=== PATIENT | female | born 1950 | race Caucasian/White ===

== ENCOUNTER 2016-09-05 20:10 | Emergency (ER) | payer MEDICARE, BC ==
[2016-09-05 20:20] VITALS: BP 132/68
--- NOTE | 2016-09-05 20:40 | ERNOTE ---
Medical Problem HPI - Narrative Date of Service: 09/05/16 - General Chief Complaint: General Assessment Time Seen by Provider: 09/05/16 20:28 Source: patient Exam Limitations: no limitations - Immun/Allergies/Home Medications Immunizations: IMMUNIZATION HX Immunizations Up to Date Yes History of Influenza Vaccine Yes Hx Pneumococcal Vaccination Yes Allergies/Adverse Reactions: Allergies No Known Allergies Allergy (Verified 12/21/14 12:38) Home Medications: HOME MEDICATIONS Albuterol Sulfate [Albuterol Sulfate 2.5 MG/0.5ML] 2.5 mg IH Q3H PRN 06/02/13 [ Last Taken Unknown] Hydrochlorothiazide 25 mg PO DAILY 06/02/13 [Last Taken Unknown] Levothyroxine Sodium [Synthroid] 200 mcg PO DAILY 06/02/13 [Last Taken Unknown] Lisinopril [Zestril] 10 mg PO DAILY 06/02/13 [Last Taken Unknown] Omeprazole [Prilosec] 40 mg PO DAILY 06/02/13 [Last Taken Unknown] Rosuvastatin Calcium [Crestor] 20 mg PO HS 06/02/13 [Last Taken Unknown] glipiZIDE [Glucotrol] 5 mg PO BID 06/02/13 [Last Taken Unknown] metFORMIN HCL [Glucophage] 1,000 mg PO BIDWM 06/02/13 [Last Taken Unknown] Saxagliptin HCl [Onglyza] 5 mg PO DAILY 12/21/14 [Last Taken Unknown] Linaclotide [Linzess] 145 mcg PO DAILY 09/05/16 [Last Taken Unknown] Urea 142 gm TP BID 09/05/16 [Last Taken Unknown] - History of Present History Narrative: patient present with right breast pain that started last weekend. patient states it comes and goes, can last for a few min, describes pain as stabbing and then it goes away. Date (Duration): 09/05/16 Timing: intermittent Severity: mild Modifying Factors - (Improves): Present: other - warmth Review of Systems - Review of Systems Constitutional: Present: no symptoms reported EYE: Present: no symptoms reported ENT: Present: no symptoms reported Respiratory: Present: no symptoms reported Cardiology: Present: no symptoms reported Gastrointestinal/Abdominal: Present: no symptoms reported Genitourinary: Present: no symptoms reported Musculoskeletal: Present: See HPI, muscle pain Skin: Present: no symptoms reported Neurological: Present: no symptoms reported Endocrine: Present: no symptoms reported Hematologic/Lymphatic: Present: no symptoms reported Psych: Present: no symptoms reported All Other Systems: All systems neg except as marked - Patient's Past Medical History Patient History - Medical: Diabetes Type 2 Patient History - Cardiac/Respiratory: Coronary Heart Disease, COPD, Myocardial Infarction Patient History - Cancer: No Hx of Cancer Patient History - Surgical Procedures: No surgical history Patient History - Other: None LMP (females 10-50): Menopausal - Social History Living Situations: home Abuse History: No History of abuse Psych History: Hx of Anxiety, Hx of Depression, Current tx/ever been on anti- depressants or anti-anxiety meds Smoking Status: Current every day smoker Alcohol Use: none Drug Use: none - Immunizations Immunizations Up to Date: Yes Hx Pneumococcal Vaccination: Yes History of Influenza Vaccine: Yes Physical Exam - Physical Exam Narrative: patient has right upper breast pain, tender to touch, no swelling or redness. no mass. Bilateral breast are pendulous and supple. skin is warm dry and intact. denies nipple involvement and discharge. patient was able to make pain return with raising her right arm like she was reaching for something. General Appearance: Present: wd/wn, alert, no apparent distress Eye Exam: Normal inspection: bilateral Ears, Nose, Throat: Present: normal ENT inspection, normal pharynx Neck: Present: normal inspection, nontender, full range of motion Respiratory: Present: no respiratory distress, normal breath sounds, no accessory muscle use, lungs clear, chest tenderness - right breast Cardiovascular/Chest: Present: regular rate, rhythm, no murmur Gastrointestinal/Abdominal: Present: nontender, soft Back Exam: Present: normal inspection, normal range of motion, no CVA tenderness , no vertebral tenderness Extremity Exam: Present: normal inspection, normal range of motion, no edema Neurological Exam: Present: alert, oriented, normal mood/affect, no motor/ sensory deficits Skin Exam: Present: normal color, warm/dry Lymphatic Exam: Present: no adenopathy. Absent: axilla node (R), axilla node (L ) ED Progress - Vital Signs Patient's Vital Signs:: I have reviewed the patient's vital signs. Vital Signs: Vital Signs 09/05/16 20:12 Temperature 36.9 C Pulse Rate 73 Respiratory 16 Rate Blood Pressure 132/68 O2 Sat by Pulse 91 Oximetry - Progress/Reassessment Chief Complaint: General Assessment Progress:: Improved Progress Note-Subjective: 09/05/16 20:35 improved with heat. Plan - Plan Plan: Speaking with patient she denies having any previous mammograms performed. I did encourage her to keep her appointment with Dr. Dominique so she could have a mammogram performed in follow-up on. Patient states that she will keep her appointment on Saturday with Dr. Dominique. Departure - Departure Clinical Impression: Breast pain, right Disposition: Home Follow Up Needed Condition: Stable Instructions: Breast Tenderness, Chest Wall Pain Additional Instructions: Please keep your follow-up appointment with Dr. Dominique on Saturday. Return to the emergency room if symptoms persists. You may apply heat or ice to the effected area ever makes it feel better at this time. Continue any previous home medications as directed. Referrals: Charlene Dominique MD [Primary Care Provider] -
--- OUTSIDE RECORDS SUMMARY | 2016-09-05 20:46 | XMS REPORT | Continuity of Care Document ---
:1950 Author Organization [facility] ([facility]) [place] [address] Phone [phone] Care Team Providers Name Role Phone Charlene Dominique Primary Care Provider [phone] Source Comments This disclosure is being made pursuant to the Care Everywhere program, applicable federal and state laws, and may not contain all informaitonavailable regarding this patient.[facility] ([facility]) Active Allergies and Adverse Reactions No Known Allergies Current Medications Prescription Sig. Disp. Refills Start Date End Date Status hydrochlorothiazide 25 mg Take 25 mg by Active tablet mouth daily. Omeprazole 20 mg TbEC Take by mouth 2 Active times daily. lisinopril 10 mg tablet Take 10 mg by Active mouth daily. metFORMIN 1,000 mg tablet Take 1,000 mg by Active mouth 2 times daily with meals. rosuvastatin (CRESTOR) 20 Take 20 mg by Active mg tablet mouth every evening. linaclotide (LINZESS) 145 Take 145 mcg by Active mcg capsule mouth every morning before breakfast levofloxacin 500 mg tablet Take 500 mg by Active mouth daily. glipiZIDE 10 mg tablet Take 10 mg by Active mouth 2 times daily with meals. levothyroxine PO Take 225 mcg by Active mouth daily. ezetimibe (ZETIA) 10 mg Take 10 mg by Active tablet mouth daily. buPROPion (WELLBUTRIN-SR) Take 150 mg by Active 150 mg SR tablet 12 hour mouth 2 times daily. urea 40 % cream Apply topically Active 2 times daily. polyethylene Take as 4000 mL 0 01/02/2016 Active glycol-electrolyte directed. (GOLYTELY) suspension famotidine 20 mg tablet Take 20 mg by Active mouth 2 times daily. Active Problems Problem Noted Date GERD (gastroesophageal reflux disease) 08/24/2008 Hyperlipidemia 08/24/2008 Hypothyroidism 08/24/2008 Urge incontinence 07/26/2008 Most Recent Encounters Date Type Specialty Providers Description 09/05/2016 Hospital Encounter Radiology VitoteresaAntwan Chief Comp: Patient MD Kiara Reported Reason For Visit 09/05/2016 Office Visit Med GI/Hepatology Eladio Rich, Dx: Non- alcoholic MD cirrhosis (Primary Dx) Social History Tobacco Use Types Packs/Day Years Used Date Current Every Day Smoker Cigarettes 1 45 Smokeless Tobacco: Never Used Tobacco Cessation:Counseling Given: Yes Comments: Alcohol Use Drinks/Week oz/Week Comments No Last Filed Vital Signs Vital Sign Reading Time Taken Blood Pressure 127/56 09/05/2016 9:35 AM CDT Pulse 69 09/05/2016 9:35 AM CDT Temperature 36.5 C (97.7 F) 09/05/2016 9:35 AM CDT Respiratory Rate 18 10/22/2012 9:07 AM CDT Height 1.54 m (5' 0.63") 09/05/2016 9:35 AM CDT Weight 74.05 kg (163 lb 4 oz) 09/05/2016 9:35 AM CDT Body Mass Index 31.22 09/05/2016 9:35 AM CDT Oxygen Saturation 94% 10/22/2012 9:07 AM CDT Plan of Care Date Type Specialty Providers Description 02/25/2017 Appointment Radiology Chief Comp: Patient Reported Reason For Visit 02/25/2017 Appointment Med GI/Hepatology Eladio Rich MD Chief Comp: Patient [address] [place] [address] Visit [phone] (Fax) 09/04/2017 Appointment Radiology Chief Comp: Patient Reported Reason For Visit 09/04/2017 Appointment Med GI/Hepatology Eladio Rich MD Chief Comp: Patient [address] [place] [address] Visit [phone] (Fax) Health Maintenance Due Date Last Done Comments Hepatitis B Vaccine (1 of 3 - Primary Series) 1950 Tdap Vaccine 02/03/1960 Td Vaccine 1967 Mammogram 1989 Colonoscopy 1999 Zoster Vaccine 2009 Osteoporosis Screening (DXA Bone Density) 2014 Pneumococcal Vaccine (1 of 2 - PCV13) 2014 Influenza Vaccine: Seasonal (Season Ended) 2016 Lipid Disorder Screening 09/06/2020 09/07/2015 HCV Screening Completed 09/07/2015 Results from Last 3 Months US ABDOMEN LIMITED (09/05/2016 9:19 AM) Impressions Impression: 1. Cirrhotic liver without focal liver lesions. 2. Mild splenomegaly, no ascites. --- Final --- Narrative [facility] Department of Radiology Ultrasound Division [address] [place] [address] ULTRASOUND REPORT NAME:AMEE SCOTT Date of Service: 09/05/2016 MRN NO.: [id number] Review Date: 09/05/2016 Patient's : 1950 Resident/Tech: [id number] Cheo Camargo Patient's Age: 66 years Referring MD:ELADIO RICH Indication: Please assess for mass/lesion and ascites before RTCHepatic cirrhosis, unspecified hepatic cirrhosis type [K74.60] Fatty liver [K76.0] Diabetes mellitus due to underlying condition with hyperglycemia [E08.65]. Technique: Liver, spleen, ascites surveillance grayscale ultrasound. Comparison: None. Findings: Liver: +---------+ + +--------+ + :Size (cm):Echogenicity:Echotexture:Shape :Vascularity: +---------+ + +--------+ + :18.2 :Increased.:Coarse echotexture.:Nodular.:Normal.: +---------+ + +--------+ + Spleen: Splenomegaly. Spleen measures 14.6 x 14.9 x 5.9 cm. Ascites: No ascites. Procedure Note Duy, Incoming Imaging Results - SatSeptember 05, 2016 11:18 AM CDT [facility] Department of Radiology Ultrasound Division [address] [place] [address] ULTRASOUND REPORT NAME: AMEE SCOTT Date of Service: 09/05/2016 MRN NO.: [id number] Review Date: 09/05/2016 Patient's : 1950 Resident/Tech: [id number] Cheoerica Maryson Patient's Age: 66 years Referring MD: ELADIO RICH Indication: Please assess for mass/lesion and ascites before RTCHepatic cirrhosis, unspecified hepatic cirrhosis type [K74.60] Fatty liver [K76.0] Diabetes mellitus due to underlying condition with hyperglycemia[E08.65]. Technique: Liver, spleen, ascites surveillance grayscale ultrasound. Comparison: None. Findings: Liver: +---------+ + +--------+ + :Size (cm):Echogenicity:Echotexture :Shape :Vascularity: +---------+ + +--------+ + :18.2 :Increased. :Coarse echotexture.:Nodular.:Normal. : +---------+ + +--------+ + Spleen: Splenomegaly. Spleen measures 14.6 x 14.9 x 5.9 cm. Ascites: No ascites. IMPRESSION Impression: 1. Cirrhotic liver without focal liver lesions. 2. Mild splenomegaly, no ascites. --- Final --- ALPHA-FETOPROTEIN (09/05/2016 7:36 AM) Component Value Range AFP 1.4 0.0-9.0 ng/mL Specimen Blood LIPID PANEL (09/05/2016 7:36 AM) Component Value Range Specimen Type Not specified Cholesterol 91Comment: mg/dL Reference Range: Less than 200 mg/dL - desirable 200 - 240 mg/dL - increased risk Above 240 mg/dL - significant risk Triglycerides 57Comment: 0-150 mg/dL Reference Ranges: Normal:<150 mg/dL Borderline-high:150-199 mg/dL High: 200-499 mg/dL Very high: > me=274 mg/dL HDL Cholesterol 51 >=41 mg/dL LDL - Calculated 29 <=130 mg/dL Non-HDL Cholesterol (Calc) 40 mg/dL Specimen Blood FERRITIN (09/05/2016 7:36 AM) Component Value Range Ferritin 161.1(H) 13.0-150.0 ng/mL Specimen Blood IRON PANEL (IRON, TRANSFERRIN, TIBC AND % SATURATION) (09/05/2016 7:36 AM) Component Value Range Iron, Blood 80 37-145 g/dL Transferrin 227 200-360 mg/dL Iron % Saturation 25Comment: 15-50 % Iron % saturation is a calculated parameter derived from the iron and transferrin plasma concentrations. Iron % saturation is not reliable when there are high ferritin concentrations greater than 1,200 ng/mL. TIBC (Total Iron Binding Capacity) 325Comment: 250-425 g/dL TIBC is a calculated parameter derived from the transferrin plasma concentration. Specimen Blood BASIC METABOLIC PANEL W/ CALCIUM (CHEM 8) (09/05/2016 7:36 AM) Component Value Range Sodium 142 135-145 mEq/L Potassium 4.7 3.5-5.0 mEq/L Chloride 106 95-107 mEq/L CO2 26 22-29 mEq/L BUN 23(H) 10-20 mg/dL Creatinine 0.8Comment: 0.5-1.0 mg/dL Creatinine switched to enzymatic method on 08/29/2010.GFR equation switched to IDMS-traceable MDRD equation on 08/29/2010. Calculated GFR values are not valid in clinical settings where serum creatinine is changing. Glucose 124(H)Comment: 65-99 mg/dL The Expert Committee on the Diagnosis and Classification of Diabetes has defined impaired fasting glucose as greater than or equal to 100 mg/dL but less than 126 mg/dL.(Diabetes Care 28 (Suppl 1)S41,2005) Calcium 9.1 8.5-10.5 mg/dL Anion Gap 10 <17 mEq/L Calculated GFR 72 >60 mL/min/1.73 m2 Specimen Blood LACTATE DEHYDROGENASE (LDH) (09/05/2016 7:36 AM) Component Value Range LDH 178 135-214 U/L Specimen Blood GAMMA GLUTAMYLTRANSPEPTIDASE (09/05/2016 7:36 AM) Component Value Range GGT 25 5-36 U/L Specimen Blood HEPATIC FUNCTION PANEL (09/05/2016 7:36 AM) Component Value Range Albumin 4.1 3.4-4.8 g/dL ALP 105(H) 35-104 U/L Bilirubin Total 0.9 <=1.2 mg/dL Bilirubin, Direct 0.2 0.0-0.2 mg/dL AST 27Comment: 0-32 U/L Adult reference ranges updated on 03/17/13 at 830am ALT 26Comment: 0-33 U/L The upper limit of normal for alanine aminotransferase (ALT) reference ranges for adults is controversial with some authorities recommending limit as low as 30 U/L for males and 19 U/L for females. Th ere is increased incidence of subclinical liver disease (e.g., early steatohepatitis) in patients with ALT values in the range of 31-41 U/L for males and 20-33 U/L for females. ALT values should alway s be interpreted in conjunction with clinical history, physical examination findings, and, if applicable, data from other diagnostic tests. Total Protein 7.1 6.0-8.0 g/dL Specimen Blood CBC (COMPLETE BLOOD COUNT) (09/05/2016 7:36 AM) Component Value Range WBC Count 4.4 3.7-10.5 K/MM3 RBC Count 3.78(L) 4.00-5.20 M/MM3 Hemoglobin 11.8(L) 11.9-15.5 g/dL Hematocrit 35 35-47 % MCV (Mean Corpuscular Volume) 93 82-99 FL MCH (Mean Corpuscular Hemoglobin) 31 25-35 PG MCHC (Mean Corpuscular Hemoglobin Concentration) 34 32-36 % Platelet Count 103(L) 150-400 K/MM3 MPV (Mean Platelet Volume) 9.2(L) 9.4-12.3 FL RBC Dist Width-STD 45.2 36.4-46.3 FL RBC Distrib Width 13.3 9.0-14.5 % Nucleated RBC 0 /100 WBC Specimen Whole Blood PT/INR (PROTHROMBIN TIME/INR) VENOUS (09/05/2016 7:36 AM) Component Value Range PT (Prothrombin Time) 10 9-12 secs INR 1.0 <4.0 Specimen Blood
--- OUTSIDE RECORDS SUMMARY | 2016-09-05 20:46 | XMS REPORT | Continuity of Care Document ---
:1950 Author Organization [facility] [place] [address] Care Team Providers Name Role Phone TripCharlene Blessing Primary Care Provider [phone] Source Comments This disclosure is being made pursuant to the [employer] other things you bake program and contain all information available regarding this patient.[facility] Active Allergies and Adverse Reactions No Known Allergies Current Medications Be aware that medications may not be up to date as of this document. Alwaysverify current medications with the patient. Prescription Sig. Disp. Refills Start Date End Date Status acetaminophen Take 2 tablets by 100 tablet 1 12/23/2015 Active (TYLENOL) 325 MG mouth every 6 tablet (six) hours as needed. budesonide Take 2 mLs by 60 mL 1 12/23/2015 Active (PULMICORT) 0.5 nebulization 2 MG/2ML nebulizer (two) times daily. solution Rinse mouth after use. dextrose 50 % Inject 50 mLs into 50 mL 0 12/23/2015 Active solution the vein as needed (hypoglycemia symptoms and/or glucose less than 70 mg/dL). dextrose 15 GM/59ML Take 59-118 mLs by 59 mL 0 12/23/2015 Active LIQD oral liquid mouth as needed (hypoglycemia symptoms and/or glucose less than 70 mg/dL). dextrose 15 GM/59ML Take 59-118 mLs by 59 mL 0 12/23/2015 Active LIQD oral liquid mouth as needed (hypoglycemia symptoms and/or glucose less than 70 mg/dL). glucagon, human Inject 1 mg into 1 each 0 12/23/2015 12/17/2016 Active recombinant, 1 MG the muscle as injection needed (hypoglycemia symptoms and/or glucose less than 70 mg/dL). ipratropium-albutero Take 3 mLs by 90 mL 3 12/23/2015 Active l (DUONEB) 0.5-2.5 nebulization every (3) MG/3ML SOLN 4 (four) hours. levothyroxine 1 tablet by Per G 90 tablet 1 12/24/2015 Active (SYNTHROID, Tube route every LEVOTHROID) 200 MCG morning. tablet menthol-zinc oxide Apply to right and 1 Tube 0 12/23/2015 Active 0.44-20.625 % OINT left buttocks wounds and cover with dressing twice daily metoclopramide Inject 2 mLs into 1 mL 0 12/23/2015 Active (REGLAN) 5 MG/ML the vein every 6 injection (six) hours. HYDROcodone-acetamin 1-2 tablets by Per 30 tablet 0 12/23/2015 Active ophen (NORCO) 5-325 G Tube route every MG per tablet 4 (four) hours as needed. Active Problems Problem Noted Date S/P CABG (coronary artery bypass graft) 12/12/2015 Chronic obstructive pulmonary disease (HCC) 10/12/2015 Hyperlipidemia 10/12/2015 Type 2 diabetes mellitus with circulatory disorder (HCC) 10/12/2015 Coronary artery disease involving [place] coronary artery of [place] heart 10/11 with angina pectoris ([facility]) Social History Tobacco Use Types Packs/Day Years Used Date Former Smoker 30 Quit: 10/06/2015 Alcohol Use Drinks/Week oz/Week Comments No Last Filed Vital Signs Vital Sign Reading Time Taken Blood Pressure 85/39 12/25/2015 11:00 AM CDT Pulse 80 12/25/2015 11:55 AM CDT Temperature 37 C (98.6 F) 12/25/2015 8:00 AM CDT Respiratory Rate 20 12/25/2015 11:55 AM CDT Height 1.638 m (5' 4.5") 12/12/2015 5:19 AM CDT Weight 84.1 kg (185 lb 6.5 oz) 12/25/2015 4:00 AM CDT Body Mass Index 31.34 12/25/2015 4:00 AM CDT Oxygen Saturation 94% 12/25/2015 11:00 AM CDT Plan of Care Health Maintenance Due Date Last Done Comments Eye (Ophthalmology) Exam 1960 Foot Exam 1960 Lab-Urine Microalbumin 1959 Hepatitis C Screening 1967 Tetanus/Pertussis (1 - Tdap) 02/03/1968 Colonoscopy 1999 Mammogram 1999 Well Adult Visit 1999 Zoster Vaccine 60+ 2009 Bone Density 2014 Pneumococcal Low/Medium Risk 65+ (1 of 2 - PCV13) 2014 Influenza Immunization (#1) 2015 LAB-HgA1C 05/17/2016 11/15/2015 Lab-Lipids 11/14/2016 11/15/2015 Results from Last 3 Months Not on file
== END 2016-09-05 20:44 | disposition home or self-care (01) ==
LOC: ER 20:10
DX: N64.4 Mastodynia (principal); E11.9 Type 2 diabetes mellitus without complications; J44.9 Chronic obstructive pulmonary disease, unspecified; I51.9 Heart disease, unspecified; F17.200 Nicotine dependence, unspecified, uncomplicated